=== PATIENT | female | born 1985 | race Two or more races ===

== ENCOUNTER → 2017-08-05 | Outpatient (CLI) | payer OTHER ==
--- NOTE | 2017-08-05 09:00 | US ---
EXAMINATION TYPE: US transvaginal DATE OF EXAM: 08/05/2017 COMPARISON: NONE CLINICAL HISTORY: R10.9 Abdominal and Pelvic Pain. History of ectopic , tube removed. Pelvic pain TECHNIQUE: Transvaginal (TV) Date of LMP: 07/20/17 EXAM MEASUREMENTS: Uterus: 7.1 x 4.2 x 5.1 cm Endometrial Stripe: 0.7 cm Right Ovary: 2.3 x 1.7 x 2.1 cm Left Ovary: 3.4 x 1.5 x 2.0 cm 1. Uterus: Retroverted Nabothian cyst 2. Endometrium: appears wnl 3. Right Ovary: follicles noted 4. Left Ovary: possible isoechoic area = 1.7 x 1.4 x 1.7cm 5. Bilateral Adnexa: appears wnl 6. Posterior cul-de-sac: free fluid noted IMPRESSION: 1. There is an isoechoic lesion involving the left ovary measuring 1.7 cm. May represent hemorrhagic cyst or an neoplasms of the ovary. Consider either MRI or follow-up exam in 4-6 weeks.
--- NOTE | 2017-08-05 09:01 | US ---
EXAMINATION TYPE: US abdomen complete DATE OF EXAM: 08/05/2017 COMPARISON: NONE CLINICAL HISTORY: R10.9 Abdominal and Pelvic Pain. Lower abdominal pain EXAM MEASUREMENTS: Liver Length: 12.6 cm Gallbladder Wall: 0.2 cm CBD: 0.3 cm Spleen: 9.0 cm Right Kidney: 9.6 x 4.9 x 4.1 cm Left Kidney: 10.2 x 4.8 x 4.9 cm Technical limitations due to large amount of overlying bowel content Pancreas: Obscured by bowel gas Liver: visualized portions appear wnl Gallbladder: no evidence of stones Evidence for sonographic Kingston's sign: no CBD: wnl Spleen: appears wnl Right Kidney: no evidence of hydronephrosis Left Kidney: no evidence of hydronephrosis Upper IVC: wnl Abd Aorta: visualized portions appear wnl The liver is homogenous. The intrahepatic portion of the IVC and proximal abdominal aorta are within normal limits. There is no evidence of cholelithiasis. Common bile duct is unremarkable. The visu alized portions of the pancreas are homogenous. The spleen is unremarkable. Kidneys are symmetric a nd free of hydronephrosis. No renal lesions are seen. IMPRESSION: 1. No acute process.
== END | disposition home or self-care (01) ==
LOC: RADUSWWP 07:27
PROVIDERS: ATTEND Internal Medicine
DX: N83.8 Other noninflammatory disorders of ovary, fallopian tube and broad ligament (principal); R10.9 Unspecified abdominal pain
CPT/HCPCS: 76700; 76830

== ENCOUNTER → 2022-10-15 | Outpatient (CLI) | payer OTHER ==
[2022-10-15 13:29] VITALS: BP 128/79; PULSE 72; RESP 16; TEMP 97.4
--- NOTE | 2022-10-15 14:36 | P.HPOB ---
History of Present Illness H&P Date: 10/15/22 Chief Complaint: The patient is here for her routine gynecologic exam. This is a 37-year-old with an LMP of 09/28/2022. The patient is here to establish with this office. It has been about 2 years since her last pelvic exam. She has had a previous unilateral salpingectomy for an ectopic and had another tubal ectopic on the other side. She believes the remaining tube is blocked and does not do anything to actively preventing . She is declining any form of control. She states she has a long history of bacterial vaginosis for many years. She thinks she has bacterial vaginosis at this time because of the vaginal discharge and odor. She states she cannot really describe the discharge but she is pretty certain she has bacterial vaginosis because of the odor. She states she frequently gets bacterial vaginosis symptoms after her menstrual period. She is otherwise without gynecologic complaints. Review of Systems The patient's weight has been stable over the last year. She denies respir atory, cardiac, or G.I. problems. Past Medical History Past Medical History: No Reported History Additional Past Medical History / Comment(s): back and neck pain. 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 She has no other history of STDs. Frequent bacterial vaginosis. History of Any Multi-Drug Resistant Organisms: None Reported Past Surgical History: No Surgical Hx Reported Additional Past Surgical History / Comment(s): D&C, laparotomy with salpingectomy for ectopic . Bunionectomy. Past Anesthesia/Blood Transfusion Reactions: No Reported Reaction Past Psychological History: No Psychological Hx Reported (She denies current depression.) Smoking Status: Current every day smoker (About one half of a pack of cigarettes per day) Past Alcohol Use History: Occasional (5 per week) Past Drug Use History: None Reported Additional History: She has been since 2016, but is . She now has a new sexual partner and they are contemplating living together. 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 - Past Family History Mother Family Medical History: Cancer Additional Family Medical History / Comment(s): Cervical cancer. Father Family Medical History: Cancer Additional Family Medical History / Comment(s): Leukemia. Neice Family Medical History: Cancer Additional Family Medical History / Comment(s): Cervical cancer. Medications and Allergies Home Medications Medication Instructions Recorded Confirmed Type No Known Home Medications 10/15/22 10/15/22 History Allergies Allergy/AdvReac Type Severity Reaction Status Date / Time No Known Allergies Allergy Verified 10/15/22 13:25 Exam Vital Signs Temp Pulse Resp BP Pulse Ox 10/15/22 13:26 97.4 F L 72 16 128/79 97 Intake and Output 10/14/22 10/15/22 10/15/22 22:59 06:59 14:59 Other: Weight 75.296 kg Height 5 feet 3 inches, weight 166 pounds, BMI 29.4. This is a well-developed well-nourished female who is alert and oriented times 3 in no acute distress. HEENT: Within normal limits. NECK: Supple without mass or thyromegaly. CHEST AND LUNGS: Clear to auscultation. HEART: Regular rate and rhythm. BREASTS: Are without mass or discharge. AXILLARY EXAM: Negative for adenopathy. BACK: Negative for CVA tenderness. ABDOMEN: Soft, nontender, without palpable masses. PELVIC EXAM: Normal external genitalia. Cervix and vagina reveals a small to moderate amount of thin shelton discharge with odor. The cervix does not appear inflamed and there are no cervical lesions. There is no evidence of prolapse. There is no cervical motion tenderness. The uterus is midposition, nongravid size and nontender. There are no palpable adnexal masses or tenderness. RECTAL EXAM: Refused by the patient. EXTREMITIES: Nontender. IMPRESSION: 1. 37-year-old female with suspected bacterial vaginosis. Differential diagnosis will also include trichomonas, chlamydia, gonorrhea, and patt vaginitis. 2. History of unilateral salpingectomy for ectopic as well as medically treated ectopic in the contralateral fallopian tube. PLAN: 1. Pap smear cotest was performed. 2. Self breast awareness was discussed with the patient. We have also discussed symptoms associated with inflammatory breast cancer. 3. Affirm vaginitis panel was obtained from the vagina. 4. GC and Chlamydia testing was obtained from the cervix. 5. We have had a long discussion regarding bacterial vaginosis. We have discussed how low amounts of Lactobacillus can lead to greater risk for bacterial vaginosis. She understands that getting things into the vagina including soap, chlorinated water, and saliva can possibly increase the risk for bacterial vaginosis. We have discussed how probiotics and yogurt may encourage the vaginal Lactobacillus and may be helpful. She will be treated empirically for bacterial vaginosis because of her symptoms and findings. Metronidazole 500 mg by mouth twice a day 7 days. The electronic prescription will be sent to [facility] pharmacy on . 6. She has not received a Covid vaccination, but has had Covid. She understands Covid vaccinations are available and may increase protection against Covid. 7. STD prevention was discussed. I have stressed the importance of limiting sexual partners and I recommended condom use if she is sexually active. 8. Blood testing for STDs was declined by the patient. 9. She is declining anything for control at this time. We have discussed the possibility of getting as well as the possibility of having another ectopic . She understands this and still declines any control at this time. 10 She was advised to return in one year for her annual well woman exam and as needed.
== END ==
LOC: WWCWWP 13:09
PROVIDERS: ATTEND Obstetrics & Gynecology
DX: Z01.419 Encounter for gynecological examination (general) (routine) without abnormal findings (principal); Z90.721 Acquired absence of ovaries, unilateral; F17.200 Nicotine dependence, unspecified, uncomplicated